=== PATIENT | female | born 1985 | race African-American/Black ===

== ENCOUNTER 2016-09-30 12:51 | Outpatient (CLI) | payer OTHER ==
[~2016-09-30] VITALS: Ht 170.2 cm; Wt 143.0 kg
[~2016-09-30 12:51] MED LIST: ACET500T98 PO; BISM262O23 PO; ZOF8 PO
[2016-09-30 13:03] VITALS: Ht 170.2 cm; Wt 143.0 kg
[2016-09-30 13:39] LABS: ADD SCAN DIFF NO
[2016-09-30 13:41] LABS: BASOPHILS % 0.3 % (0.0-2.0); EOSINOPHILS # 0.1 10^3/ul (0.0-0.5); EOSINOPHILS % 1.3 % (0.0-7.0); HEMATOCRIT 35.7 % (37.0-47.0); HEMOGLOBIN 12.5 g/dl (12.0-16.0); LYMPHOCYTES # 1.8 10^3/ul (0.8-2.9); LYMPHOCYTES % 22.9 % (15.0-51.0); MEAN CORPUSCULAR HEMOGLOBIN 32.6 pg (29.0-33.0); MEAN CORPUSCULAR VOLUME 93.2 fl (82.0-101.0); MEAN PLATELET VOLUME 13.3 fl (7.4-10.4); MONOCYTE # 0.7 10^3/ul (0.3-0.9); MONOCYTES % 8.3 % (0.0-11.0); NEUTROPHIL # 5.4 10^3/ul (1.6-7.5); NEUTROPHILS % 66.7 % (39.0-77.0); PLATELET COUNT 106 10^3/UL (140-415); RED BLOOD COUNT 3.83 10^6/ul (4.20-5.40); RED CELL DISTRIBUTION WIDTH 14.5 % (11.5-14.5)
[2016-09-30 13:50] LABS: ALBUMIN 3.3 g/dl (3.3-4.9); POTASSIUM 3.6 mmol/L (3.5-5.1)
[2016-09-30 13:52] LABS: CREATININE 0.53 mg/dl (0.44-1.00); INR 1.11; PROTIME 14.3 Sec (12.2-14.2); PT RATIO 1.1
[2016-09-30 13:53] LABS: ALBUMIN/GLOBULIN RATIO 1.06; BILIRUBIN,INDIRECT 0.3 mg/dl (0-1.1); BILIRUBIN,TOTAL 0.3 mg/dl (0.2-1.3); CALCIUM 9.2 mg/dl (8.4-10.2); PARTIAL THROMBOPLASTIN TIME 26.4 Sec (25.0-35.0); TOTAL PROTEIN 6.4 g/dl (6.1-8.1); URIC ACID 4.6 mg/dl (3.1-7.9)
[2016-09-30 13:54] LABS: ADD UMIC YES; URINE BILIRUBIN (Dip) NEGATIVE (NEGATIVE); URINE BLOOD (Dip) NEGATIVE (NEGATIVE); URINE COLOR LT. YELLOW (YELLOW); URINE GLUCOSE (Dip) NEGATIVE (NEGATIVE); URINE KETONES (Dip) NEGATIVE (NEGATIVE); URINE LEUKOCYTE ESTERASE (Dip) 2+ (NEGATIVE); URINE NITRITE (Dip) POSITIVE (NEGATIVE); URINE TOTAL PROTEIN (Dip) NEGATIVE (NEGATIVE); URINE UROBILINOGEN (Dip) 0.2 E.U./dL (0.1-1.0)
--- NOTE | 2016-09-30 14:16 | RADRPT ---
PROCEDURE: OB ultrasound for biophysical profile CLINICAL INDICATION: induced hypertension TECHNIQUE: Multiple sonographic images of the pelvis were obtained. Transabdominal views of the g ravid uterus are available for review. The images were reviewed on a PACS workstation. COMPARISON: None FINDINGS: breathing movement = 2/2 tone = 2/2 motion = 2/2 REGINA = 2/2 REGINA = 15.8 cm Single live intrauterine with cardiac activity of 151 bpm. position is cephal ic. The placenta is anterior. IMPRESSION: 1. Single live intrauterine gestation. 2. Biophysical profile = 8/8. 3. REGINA = 15.8 cm. RPTAT: HH .Laureen Starkey MD, MD Date Time Electronically viewed and signed by .Laureen Starkey MD, on 09/30/2016 14:15 .G/
--- NOTE | 2016-09-30 14:17 | RADRPT ---
PROCEDURE: US OB. CLINICAL INDICATION: induced hypertension TECHNIQUE: Multiple sonographic images of the pelvis were obtained. Transabdominal imaging only w as performed. The images were reviewed on a PACS workstation. COMPARISON: No prior studies are available for comparison. FINDINGS: There is a single live intrauterine gestation. Cardiac activity is present with 168 beats per minut e. position is cephalic. Measurements were made in order to determine age. The results are as follows: BPD = 9.72 cm HC = 33.43 cm AC = 36.25 cm FL = 7.54 cm. Estimated gestational age of approximately 39 weeks 1 day. The estimated date of delivery is 10/06/2016. The EFW = 3822 g, 97th %ile. The placenta is anterior. There is no evidence for an abruption or placenta previa. There are no adnexal masses. IMPRESSION: 1. Single live intrauterine gestation of approximately 39 weeks 1 day, by ultrasound criteria. 2. The estimated date of delivery is 10/06/2016. 3. The estimated weight is 3822 g, 97 for %ile. RPTAT: HH .Laureen Starkey MD, Date Time Electronically viewed and signed by .Laureen Starkey MD, on 09/30/2016 14:17 .G/
[2016-09-30 14:31] LABS: BACTERIA,URINE MODERATE; SQUAMOUS EPITHELIAL CELL,UR MANY; URINE RBCS NONE SEEN /HPF (0)
--- NOTE | 2016-09-30 16:30 | TRIAGE ---
OB Triage Datetime Report Generated by CPN: 09/30/2016 16:29 Datetime: 09/30/2016 15:03 Maternal Assessment Level of Consciousness: Fully Conscious DTR's/Clonus: DTRs 2+ Headache: Denies Blurred Vision: No Nausea/Vomiting: Denies RUQ Epigastric Pain: Denies Facial Edema: None Labor Evaluation Frequency: IRREG Monitor Mode: External Duration (sec)2399: 60 Quality: Moderate Pattern: Normal: <= 5 Contractions in 10 Minutes Resting Tone Heartwell: Relaxed Heart Rate FHR Baseline Rate: 145 Monitor Mode: External US FHR Baseline Changes: No Baseline Change Variability: Moderate 6-25 bpm Accelerations: 15X15 Decelerations: None Category: Category I Pain Assessment Pain Scale: 2 Pain Presence: Intermittent Pain Type: Contraction Pain Location: Abdomen Pain Goal: 2 Membrane Status: Intact Datetime: 09/30/2016 14:49 Labor Evaluation Frequency: IRREG Monitor Mode: External Duration (sec)2399: 60 Quality: Moderate Pattern: Normal: <= 5 Contractions in 10 Minutes Resting Tone Heartwell: Relaxed Heart Rate FHR Baseline Rate: 150 Monitor Mode: External US FHR Baseline Changes: No Baseline Change Variability: Moderate 6-25 bpm Accelerations: 15X15 Decelerations: None Category: Category I Pain Assessment Pain Scale: 3 Pain Presence: Intermittent Pain Type: Contraction Pain Location: Abdomen Pain Goal: 3 Vaginal Exam Dilatation (cms): 1.0 Effacement (%): 0 Station: -3 Exam By: KENY WEBBER Membrane Status: Intact Vaginal Bleeding: None Cervix, Consistency: Soft Cervix, Position: Posterior Presentation 'A': Cephalic Datetime: 09/30/2016 13:23 Maternal Assessment Level of Consciousness: Fully Conscious DTR's/Clonus: DTRs 2+ Headache: Denies Blurred Vision: No Nausea/Vomiting: Denies RUQ Epigastric Pain: Present Facial Edema: 1+ Labor Evaluation Frequency: 3-5 Monitor Mode: External Duration (sec)2399: 60 Quality: Mild Pattern: Normal: <= 5 Contractions in 10 Minutes Resting Tone Heartwell: Relaxed Heart Rate FHR Baseline Rate: 140 Monitor Mode: External US FHR Baseline Changes: No Baseline Change Variability: Moderate 6-25 bpm Accelerations: 15X15 Decelerations: None Category: Category I Pain Assessment Pain Scale: 2 Pain Presence: Intermittent Pain Type: Contraction Pain Location: Abdomen Pain Goal: 3 Membrane Status: Intact Datetime: 09/30/2016 12:59 Time of Arrival: 09/30/2016 12:53 EGA: 37.1 Arrived By: Wheelchair Arrived From: Home Movement: Present Contractions: Occasional Rupture of Membranes: Denies Vaginal Bleeding: None Vaginal Discharge: Denies Abdominal Trauma: Not Applicable Patient Complaints: Cramping Datetime: 09/30/2016 12:58 Time of Arrival: 09/30/2016 12:53 Arrived By: Wheelchair Arrived From: Home Chief Complaint: F/U ELEVATED BP AND LOW PLATLET COUNT Movement: Present Contractions: Irregular Rupture of Membranes: Denies Vaginal Bleeding: None Vaginal Discharge: Denies Recent Sexual Intercouse: Denies Abdominal Trauma: Not Applicable Patient Complaints: Other Time Provider Notified: 09/30/2016 13:15 Provider Notified: DR BURNETT Initial Plan: EFM,CALL DR BURNETT
--- NOTE | 2016-10-31 21:54 | QN ---
Documentation Comment pre term r/o labor dc home with instruction SONJA BURNETT MD October 31, 2016 21:54
--- NOTE | 2016-11-07 20:16 | QN ---
Documentation Comment suspected pre eclampsia SONJA BURNETT MD November 07, 2016 20:16
== END 2016-09-30 16:20 | disposition home or self-care (01) ==
LOC: OBT 12:51 → L-D 12:51 → OBT 16:20
PROVIDERS: ATTEND Obstetrics & Gynecology
DX: O60.03 Preterm labor without delivery, third trimester (principal); Z3A.37 37 weeks gestation of pregnancy
CPT/HCPCS: 36415; 76815; 76818; 80053; 81001; 84560; 85025; 85384; 85610; 85730; Z7500; 81003; G0463

== ENCOUNTER 2016-10-19 12:02 | Inpatient (IN) | payer OTHER ==
[~2016-10-19] VITALS: Ht 170.2 cm; Wt 144.4 kg
[2016-10-19 12:35] VITALS: Ht 170.2 cm; Wt 144.4 kg
[2016-10-19 12:36] VITALS: BP 144/89; PULSE 106
[2016-10-19] MEDS ORDERED: PRENAT PO (12:38)
[2016-10-19 13:18] LABS: ADD SCAN DIFF NO
[2016-10-19 13:24] LABS: ABNORMAL IP MESSAGE 1; BASOPHILS % 0.1 % (0.0-2.0); EOSINOPHILS # 0.1 10^3/ul (0.0-0.5); EOSINOPHILS % 1.3 % (0.0-7.0); HEMATOCRIT 37.3 % (37.0-47.0); HEMOGLOBIN 12.5 g/dl (12.0-16.0); LYMPHOCYTES # 1.9 10^3/ul (0.8-2.9); MEAN CORPUSCULAR HEMOGLOBIN 31.6 pg (29.0-33.0); MEAN CORPUSCULAR HGB CONC 33.5 g/dl (32.0-37.0); MEAN CORPUSCULAR VOLUME 94.2 fl (82.0-101.0); MEAN PLATELET VOLUME 12.7 fl (7.4-10.4); MONOCYTE # 0.7 10^3/ul (0.3-0.9); MONOCYTES % 8.6 % (0.0-11.0); NEUTROPHIL # 5.8 10^3/ul (1.6-7.5); NEUTROPHILS % 67.4 % (39.0-77.0); PLATELET COUNT 89 10^3/UL (140-415); RED BLOOD COUNT 3.96 10^6/ul (4.20-5.40); RED CELL DISTRIBUTION WIDTH 15.2 % (11.5-14.5); WHITE BLOOD COUNT 8.6 10^3/ul (4.8-10.8)
[2016-10-19] MEDS ORDERED: METHYLERGONOVINE 0.2 MG INJ IM PRN ×2 (13:30→21:30)
[2016-10-19] MEDS ORDERED: MISOPROSTOL 200 MCG TAB PR PRN ×2 (13:30→21:30)
[2016-10-19] MEDS ORDERED: LACTATED RINGER'S 1,000 ML IV PRN (13:30)
[2016-10-19] MEDS ORDERED: OXYTOCIN 30 UNITS/LR 500 ML IV PRN ×2 (13:30→21:30)
[2016-10-19] MEDS ORDERED: DINOPROSTONE 10 MG VAG SUPP VAG ONE (13:30)
[2016-10-19] MEDS ORDERED: LIDOCAINE 1% (MPF) 30 ML INJ INJ PRN (13:30)
[2016-10-19] MEDS ORDERED: CARBOPROST 250 MCG INJ IM PRN ×2 (13:30→21:30)
[2016-10-19 13:33] LABS: ALBUMIN 3.3 g/dl (3.3-4.9); INR 1.07; PARTIAL THROMBOPLASTIN TIME 28.2 Sec (25.0-35.0); PROTIME 13.9 Sec (12.2-14.2); PT RATIO 1.1
[2016-10-19 13:34] LABS: POTASSIUM 3.6 mmol/L (3.5-5.1)
[2016-10-19 13:36] LABS: BILIRUBIN,INDIRECT 0.3 mg/dl (0-1.1); BILIRUBIN,TOTAL 0.3 mg/dl (0.2-1.3); CREATININE 0.55 mg/dl (0.44-1.00)
[2016-10-19 13:37] LABS: ALBUMIN/GLOBULIN RATIO 1.13; CALCIUM 9.4 mg/dl (8.4-10.2); TOTAL PROTEIN 6.2 g/dl (6.1-8.1); URIC ACID 4.6 mg/dl (3.1-7.9)
[2016-10-19 13:40] LABS: ADD UMIC YES; URINE BILIRUBIN (Dip) NEGATIVE (NEGATIVE); URINE BLOOD (Dip) NEGATIVE (NEGATIVE); URINE COLOR LT. YELLOW (YELLOW); URINE GLUCOSE (Dip) NEGATIVE (NEGATIVE); URINE KETONES (Dip) NEGATIVE (NEGATIVE); URINE LEUKOCYTE ESTERASE (Dip) TRACE (NEGATIVE); URINE NITRITE (Dip) POSITIVE (NEGATIVE); URINE TOTAL PROTEIN (Dip) NEGATIVE (NEGATIVE); URINE UROBILINOGEN (Dip) 0.2 E.U./dL (0.1-1.0)
[2016-10-19 13:50] LABS: BACTERIA,URINE MODERATE
[2016-10-19] MEDS ORDERED: BUTORPHANOL 2 MG INJ IV PRN (14:00)
[2016-10-19] MEDS ORDERED: IBUPROFEN 600 MG TAB PO PRN (14:00)
[2016-10-19] MEDS ORDERED: OXYTOCIN 30 UNITS/LR 500 ML IV SCH (14:00)
--- NOTE | 2016-10-19 14:11 | RADRPT ---
PROCEDURE: OB ultrasound for biophysical profile CLINICAL INDICATION: induced hypertension TECHNIQUE: Multiple sonographic images of the pelvis were obtained. Transabdominal view of the gr avid uterus are available for review. The images were reviewed on a PACS workstation. COMPARISON: OB ultrasound 09/30/2016 FINDINGS: breathing movement = 2/2 tone = 2/2 motion = 2/2 REGINA = 2/2 REGINA = 19.7 cm Single live intrauterine with cardiac activity. heart rate equals 168 beats p er minute. Presentation is cephalic. The placenta is anterior. IMPRESSION: 1. Single viable intrauterine gestation. 2. Biophysical profile = 8. 3. REGINA = 19.7 cm. RPTAT: KK .Dominic Corey MD, MD Date Time Electronically viewed and signed by .Dominic Corey MD, MD on 10/19/2016 14:10 .B/
--- NOTE | 2016-10-19 14:13 | RADRPT ---
PROCEDURE: US OB - Limited weight. CLINICAL INDICATION: induced hypertension TECHNIQUE: Multiple sonographic images of the pelvis were obtained. Transabdominal imaging only w as performed. The images were reviewed on a PACS workstation. COMPARISON: OB ultrasound 09/30/2016 FINDINGS: There is a single viable intrauterine gestation. Cardiac activity is present with 166 beats per min paula. There is a cephalic presentation. Measurements were made in order to determine age. The results are as follows: BPD = 9.64 cm HC = 34.42 cm AC = 39.59 cm FL = 7.75 .cm Estimated gestational age of approximately 39 weeks 4 days +/ - 2 weeks 5 days by ultrasound evalua tion The estimated date of delivery is 10/22/2016 by ultrasound evaluation. The EFW = 4522 +/- 678.4 g (>97%). The placenta is anterior.. IMPRESSION: 1. Single viable intrauterine gestation of approximately 39 weeks 4 days gestation with estimated d ate of delivery of 09/25/2016 by ultrasound evaluation. 2. The estimated weight is 4522 g (> 97%) . RPTAT: KK .Dominic Corey MD, MD Date Time Electronically viewed and signed by .Dominic Corey MD, MD on 10/19/2016 14:13 .B/
[2016-10-19] MEDS: LACTATED RINGER'S 1,000 ML IV SCH ×2 (15:11→20:09)
[2016-10-19] MEDS: CLINDAMYCIN 900 MG/D5W (PMX) 50 ML IV SCH ×2 (15:22→21:26)
[2016-10-19] MEDS ORDERED: LABETALOL HCL 20MG INJ IV ONE (20:30)
[2016-10-19] MEDS ORDERED: ONDANSETRON 4 MG INJ IV STA (21:10)
[2016-10-19] MEDS ORDERED: CITRIC ACID/NA CITRATE 30 ML CUP ONE (21:19)
[2016-10-19] MEDS ORDERED: PHENYLephrine (100 MCG/ML) 5ML SYG ONE (21:23)
[2016-10-19] MEDS ORDERED: OXYTOCIN 10 UNIT INJ ONE (21:23)
[2016-10-19] MEDS ORDERED: morphine SULFATE/PF (10 MG/10 ML) INJ ONE (21:23)
[2016-10-19] MEDS ORDERED: CITRIC ACID/SODIUM CITRATE 15 ML CUP PO ONE (21:30)
[2016-10-19] MEDS ORDERED: ONDANSETRON 4 MG INJ ONE (22:16)
[2016-10-19] MEDS ORDERED: METOCLOPRAMIDE 10 MG INJ ONE (22:16)
[2016-10-19] MEDS ORDERED: DEXAMETHASONE 4 MG/ML 1 ML INJ ONE (22:17)
[2016-10-19] MEDS ORDERED: HYDROCODONE/APAP (5/325) TAB PO PRN (23:00)
[2016-10-19] MEDS ORDERED: NALBUPHINE HCL (10 MG/1 ML) INJ IV PRN (23:00)
[2016-10-19] MEDS ORDERED: morphine 4 MG/ML VIAL IV PRN (23:00)
[2016-10-19] MEDS ORDERED: morphine 2 MG INJ IV PRN (23:00)
[2016-10-19] MEDS ORDERED: ACETAMINOPHEN 500 MG TAB PO PRN (23:00)
[2016-10-19] MEDS ORDERED: HYDROmorphONE 1 MG/ML SYG IV PRN ×2 (23:00)
[2016-10-19] MEDS ORDERED: ONDANSETRON 4 MG INJ IV PRN (23:00)
[2016-10-19] MEDS ORDERED: ONDANSETRON 4 MG INJ IV ONE (23:00)
[2016-10-19] MEDS ORDERED: KETOROLAC 30 MG INJ IV PRN (23:00)
[2016-10-19] MEDS ORDERED: NALOXONE (0.4 MG/ML) INJ IV PRN (23:00)
[2016-10-19] MEDS ORDERED: CITRIC ACID/NA CITRATE 30 ML CUP PO ONE (23:00)
--- NOTE | 2016-10-19 23:48 | OPR ---
Operative Report Planned Procedure Free Text/Dictation 30 yo P2 @ 40wks 2 days, was admitted by Dr. Lugo for IOL. Patient was started on cervidil, which was removed per Dr. Lugo, who made a plan with the patient for c/d in the morning secondary to large baby (EFW 10lbs), elevated BP' s 160's/100 in triage, and low platelets, 89K. I was first made aware of this patient within several hours of coming onto laborist shift, as I was finishing a . Nurse informed me that BP was 180/100 and patient had headache. I asked her to push labetolol, and proceeded to plan for immediate c/d as patient has worsening severe pre-eclampsia. Explained the necessity of delivery to patient, who agree with plan of care. Discussed risks of hemorrhage, blood transfusion, possible need for hysterectomy , and the starting of magnesium sulfate for siezure prophylaxis post-c/d. Procedure date Oct 19, 2016 Procedure(s) Primary c/d Performed by: KAREL RODRIGUEZ MD Assisting provider: YENIFER PORTER M.D. Pre-procedure diagnosis worsening severe pre-eclampsia Anesthesia Type: spinal Procedure Description Under satisfactory spinal anesthesia, the patient was prepped and draped and placed in a supine position, tilted to the left. Pfannenstiel incision was made , carried through the subcutaneous tissue. Bleeders brought under control with electrocautery. Fascia incised to the length of the incision. Rectus muscles from the fascia, divided midline. Peritoneum exposed, entered through a transverse incision. Exploration of abdomen revealed gravid uterus. Bladder flap was developed. Transverse incision was made in the lower segment of the uterus. Amniotic sac ruptured. Clear amniotic fluid noted. Nasal oropharyngeal suction was performed. The baby was handed to the team for immediate attention. The placenta was delivered manually intact. Uterine cavity was cleaned with wet sponge and drainage established. Uterus closed in 2 layers using 0 vicryl in continuous fashion. Peritoneal cavity irrigated with warm saline. Sponge, needle and instrument count reported to be correct. Bladder flap closed to obtain better hemostasis. Fibrillar applied; hemostasis noted. Abdominal peritoneum closed with 2 vicryl continuously. Rectus muscle approximated with 2 vicryl. Fascia closed with 0 vicryl, and skin closed with subcutaneous sutures and subcuticular sutures on a Ghanshyam needle. Estimated blood loss 800mL. Post-Procedure Post-procedure diagnosis same Findings: Live Baby girl, Apgars [9] and [9], weight [9lbs 7oz], [vtx] presentation [3 vessel]cord. Complications: None Physician Certification I, the undersigned physician, hereby certify that I have discussed the procedure described in this consent form with this patient (or the patient's legal chemical sales representative), including: * The risk and benefits of the procedure; * Any adverse reactions that may reasonably be expected to occur; * Any alternative efficacious methods of treatment which may be medically viable ; * The potential problems that may occur during recuperation; * Potential for blood transfusion and associated risks/benefits; and * Any research or economic interest I may have regarding this treatment. I further certify that the patient/legally responsible person was encouraged to ask question and that all questions were answered. KAREL RODRIGUEZ MD Oct 19, 2016 23:47
[2016-10-20] VITALS (20 sets, daily range): BP systolic 114–154; BP diastolic 57–85; PULSE 79–112; RESP 17–20
[2016-10-20] MEDS ORDERED: CARBOPROST 250 MCG INJ IM PRN
[2016-10-20] MEDS ORDERED: MISOPROSTOL 200 MCG TAB PR PRN
[2016-10-20] MEDS ORDERED: MAGNESIUM SULFATE 4 GM/100 ML 100 ML IV ONE
[2016-10-20] MEDS ORDERED: OXYTOCIN 30 UNITS/LR 500 ML IV PRN
[2016-10-20] MEDS: MAGNESIUM SULFATE 20 GM/500 ML 500 ML IV SCH ×3 (00:19→18:19)
[2016-10-20] MEDS: OXYTOCIN 30 UNITS/LR 500 ML IV SCH ×2 (03:15→10:18)
[2016-10-20] MEDS: LACTATED RINGER'S 1,000 ML IV SCH ×4 (07:58→16:43)
[2016-10-20 08:13] LABS: ADD SCAN DIFF NO
[2016-10-20 08:39] LABS: ALBUMIN 3.3 g/dl (3.3-4.9); ALBUMIN/GLOBULIN RATIO 1.22; BILIRUBIN,INDIRECT 0.2 mg/dl (0-1.1); BILIRUBIN,TOTAL 0.2 mg/dl (0.2-1.3); CALCIUM 8.9 mg/dl (8.4-10.2); CREATININE 0.6 mg/dl (0.44-1.00); POTASSIUM 4.6 mmol/L (3.5-5.1); URIC ACID 5.3 mg/dl (3.1-7.9)
[2016-10-20 08:42] LABS: ABNORMAL IP MESSAGE 1; BASOPHILS % 0.1 % (0.0-2.0); HEMATOCRIT 37.3 % (37.0-47.0); HEMOGLOBIN 12.6 g/dl (12.0-16.0); LYMPHOCYTES # 1.2 10^3/ul (0.8-2.9); MEAN CORPUSCULAR HEMOGLOBIN 32.1 pg (29.0-33.0); MEAN CORPUSCULAR HGB CONC 33.8 g/dl (32.0-37.0); MEAN CORPUSCULAR VOLUME 95.2 fl (82.0-101.0); MEAN PLATELET VOLUME 13.2 fl (7.4-10.4); MONOCYTE # 0.9 10^3/ul (0.3-0.9); NEUTROPHIL # 12.9 10^3/ul (1.6-7.5); NEUTROPHILS % 85.4 % (39.0-77.0); RED BLOOD COUNT 3.92 10^6/ul (4.20-5.40); RED CELL DISTRIBUTION WIDTH 15.7 % (11.5-14.5); WHITE BLOOD COUNT 15.1 10^3/ul (4.8-10.8)
[2016-10-20 08:59] LABS: PLATELET COUNT 98 10^3/UL (140-415)
[2016-10-20 09:03] LABS: ADD UMIC YES; URINE BILIRUBIN (Dip) NEGATIVE (NEGATIVE); URINE BLOOD (Dip) 1+ (NEGATIVE); URINE COLOR LT. YELLOW (YELLOW); URINE GLUCOSE (Dip) NEGATIVE (NEGATIVE); URINE KETONES (Dip) 40 (NEGATIVE); URINE LEUKOCYTE ESTERASE (Dip) NEGATIVE (NEGATIVE); URINE NITRITE (Dip) NEGATIVE (NEGATIVE); URINE TOTAL PROTEIN (Dip) NEGATIVE (NEGATIVE); URINE UROBILINOGEN (Dip) 0.2 E.U./dL (0.1-1.0)
--- NOTE | 2016-10-20 09:59 | PN ---
Date/Time of Note Date/Time of Note DATE: 10/20/16 TIME: 09:57 OB Subjective Subjective Subjective Post day 1 Afebrile blood pressures are running 130s 125/75 patient has no complaint of headache blurry vision or epigastric pain resting in bed, incision is dry with bowel sounds lochia moderate extremity 2+ edema currently on magnesium sulfate which will be discontinued today ambulation 24 hours post surgery recommend Laboratory Tests Test 10/19/16 13:00 10/20/16 03:30 10/20/16 07:15 White Blood Count 8.610^3/ul 15.110^3/ul Red Blood Count 3.9610^6/ul 3.9210^6/ul Hemoglobin 12.5g/dl 12.6g/dl Hematocrit 37.3% 37.3% Mean Corpuscular Volume 94.2fl 95.2fl Mean Corpuscular Hemoglobin 31.6pg 32.1pg Mean Corpuscular Hemoglobin Concent 33.5g/dl 33.8g/dl Red Cell Distribution Width 15.2% 15.7% Platelet Count 8910^3/UL 9810^3/UL Mean Platelet Volume 12.7fl 13.2fl Neutrophils % 67.4% 85.4% Lymphocytes % 22.0% 8.0% Monocytes % 8.6% 6.0% Eosinophils % 1.3% 0.0% Basophils % 0.1% 0.1% Nucleated Red Blood Cells % 0.0/100WBC 0.0/100WBC Neutrophils # 5.810^3/ul 12.910^3/ul Lymphocytes # 1.910^3/ul 1.210^3/ul Monocytes # 0.710^3/ul 0.910^3/ul Eosinophils # 0.110^3/ul 0.010^3/ul Basophils # 0.010^3/ul 0.010^3/ul Nucleated Red Blood Cells # 0.010^3/ul 0.010^3/ul Prothrombin Time 13.9Sec Prothrombin Time Ratio 1.1 INR International Normalized Ratio 1.07 Activated Partial Thromboplast Time 28.2Sec Fibrinogen 449.0mg/dl Urine Color LT. YELLOW LT. YELLOW Urine Clarity CLEAR CLEAR Urine pH 6.0 6.0 Urine Specific Smoot <=1.005 >=1.030 Urine Ketones NEGATIVE 40 Urine Nitrite POSITIVE NEGATIVE Urine Bilirubin NEGATIVE NEGATIVE Urine Urobilinogen 0.2 E.U./dL 0.2 E.U./dL Urine Leukocyte Esterase TRACE NEGATIVE Urine Microscopic RBC 5-10/HPF 5-10/HPF Urine Microscopic WBC 5-10/HPF 0-2/HPF Urine Epithelial Cells MANY RARE Urine Bacteria MODERATE Urine Hemoglobin NEGATIVE 1+ Urine Glucose NEGATIVE% NEGATIVE% Urine Total Protein NEGATIVE NEGATIVE Sodium Level 136mmol/L 132mmol/L Potassium Level 3.6mmol/L 4.6mmol/L Chloride Level 104mmol/L 102mmol/L Carbon Dioxide Level 21mmol/L 22mmol/L Anion Gap 15 13 Blood Urea Nitrogen 7mg/dl 6mg/dl Creatinine 0.55mg/dl 0.60mg/dl Glucose Level 115mg/dl 114mg/dl Uric Acid 4.6mg/dl 5.3mg/dl Calcium Level 9.4mg/dl 8.9mg/dl Total Bilirubin 0.3mg/dl 0.2mg/dl Direct Bilirubin 0.00mg/dl 0.00mg/dl Indirect Bilirubin 0.3mg/dl 0.2mg/dl Aspartate Amino Transf (AST/SGOT) 26IU/L 46IU/L Alanine Aminotransferase (ALT/SGPT) 23IU/L 33IU/L Alkaline Phosphatase 167IU/L 190IU/L Total Protein 6.2g/dl 6.0g/dl Albumin 3.3g/dl 3.3g/dl Globulin 2.90g/dl 2.70g/dl Albumin/Globulin Ratio 1.13 1.22 Rapid Plasma Reagin NONREACTIVE Magnesium Level 3.8mg/dl Current Medications Medications (Trade) Dose Ordered Sig/Flor Route PRN Reason Start Time Stop Time Status Last Admin Dose Admin Lactated Ringer's (Lr) 1,000 ml @ 125 mls/hr Q8H IV 10/19/16 13:16 10/19/16 20:09 Lidocaine 30 ml 30 ml ONCE PRN INJ EPISIOTOMY/TEARING 10/19/16 13:30 Lactated Ringer's 1,000 ml @ 2,000 mls/hr Q30M PRN IV PRE-EPIDURAL BOLUS 10/19/16 13:30 Oxytocin/Lactated Ringer's 500 ml @ 0 mls/hr ONCE PRN IV For Hemorrhage Management 10/19/16 13:30 10/19/16 21:16 DC Methylergonovine Maleate (Methergine) 0.2 mg ONCE PRN IM VAGINAL BLEEDING 10/19/16 13:30 10/19/16 21:16 DC Carboprost Tromethamine (Hemabate) 250 mcg ONCE PRN IM VAGINAL BLEEDING 10/19/16 13:30 10/19/16 21:16 DC Misoprostol (Cytotec) 1,000 mcg ONCE PRN [place] VAGINAL BLEEDING 10/19/16 13:30 10/19/16 21:16 DC Dinoprostone 10 mg 10 mg ONCE ONCE VAG 10/19/16 13:30 10/19/16 13:45 DC 10/19/16 15:22 Clindamycin HCl/ Dextrose (Cleocin 900 Mg/ D5W (Pmx)) 50 ml @ 100 mls/hr Q8 IV 10/19/16 14:00 10/20/16 04:04 DC 10/19/16 21:26 Butorphanol Tartrate 2 mg 2 mg Q2H PRN IV PAIN 10/19/16 14:00 10/19/16 20:04 Oxytocin/Lactated Ringer's 500 ml @ 125 mls/hr ONCE -MAY REPEAT X1 IV 10/19/16 14:00 10/20/16 03:15 Oxytocin/Lactated Ringer's 500 ml @ 125 mls/hr ONCE IV 10/19/16 14:00 Ibuprofen (Motrin) 600 mg ONCE PRN PO Mild Pain (Pain Score 1-3) 10/19/16 14:00 Labetalol HCl (Labetalol) 20 mg ONCE ONCE IV 10/19/16 20:30 10/19/16 20:31 DC 10/19/16 20:50 Citric Acid/ Sodium Citrate (Bicitra) 30 ml ONCE ONCE PO 10/19/16 21:30 10/19/16 21:31 DC 10/19/16 21:29 Ondansetron HCl 4 mg 4 mg ONCE STAT IV 10/19/16 21:10 10/19/16 21:15 DC 10/19/16 21:28 Oxytocin/Lactated Ringer's 500 ml @ 0 mls/hr ONCE PRN IV For Hemorrhage Management 10/19/16 21:30 Methylergonovine Maleate (Methergine) 0.2 mg ONCE PRN IM VAGINAL BLEEDING 10/19/16 21:30 Carboprost Tromethamine (Hemabate) 250 mcg ONCE PRN IM VAGINAL BLEEDING 10/19/16 21:30 Misoprostol (Cytotec) 1,000 mcg ONCE PRN [place] VAGINAL BLEEDING 10/19/16 21:30 Citric Acid/ Sodium Citrate (Bicitra) 30 ml STK-MED ONCE .ROUTE 10/19/16 21:19 10/19/16 21:20 DC Morphine Sulfate (Duramorph) 10 mg STK-MED ONCE .ROUTE 10/19/16 21:23 10/19/16 21:24 DC Oxytocin (Oxytocin) 10 units STK-MED ONCE .ROUTE 10/19/16 21:23 10/19/16 21:24 DC Phenylephrine HCl (Lane-Synephrine Inj Syg) 500 mcg STK-MED ONCE .ROUTE 10/19/16 21:23 10/19/16 21:24 DC Ondansetron HCl (Zofran Inj) 4 mg STK-MED ONCE .ROUTE 10/19/16 22:16 10/19/16 22:17 DC Metoclopramide HCl (Reglan) 10 mg STK-MED ONCE .ROUTE 10/19/16 22:16 10/19/16 22:17 DC Dexamethasone (Decadron) 4 mg STK-MED ONCE .ROUTE 10/19/16 22:17 10/19/16 22:18 DC Ondansetron HCl (Zofran Inj) 4 mg pre-procedure ONCE IV 10/19/16 23:00 10/19/16 23:01 DC Citric Acid/ Sodium Citrate (Bicitra) 30 ml pre-procedure ONCE PO 10/19/16 23:00 10/19/16 23:01 DC Hydromorphone HCl (Dilaudid) 0.2 mg Q2H PRN IV PAIN LEVEL 1-5 10/19/16 23:00 10/20/16 21:47 Hydromorphone HCl (Dilaudid) 0.4 mg Q2H PRN IV PAIN LEVEL 6-10 10/19/16 23:00 10/20/16 21:47 Morphine Sulfate (morphine) 2 mg Q2H PRN IV PAIN LEVEL 1-5 10/19/16 23:00 10/20/16 21:47 Morphine Sulfate (morphine) 4 mg Q2H PRN IV PAIN LEVEL 6-10 10/19/16 23:00 10/20/16 21:47 Ketorolac Tromethamine (Toradol) 30 mg Q6H PRN IV PAIN LEVEL 6-10 10/19/16 23:00 10/20/16 21:47 Acetaminophen (Tylenol Tab) 500 mg Q4H PRN PO PAIN LEVEL 1-3 10/19/16 23:00 10/20/16 21:47 Acetaminophen/ Hydrocodone Bitart ([place] (5/325)) 1 tab Q4H PRN PO PAIN LEVEL 4-6 10/19/16 23:00 10/20/16 21:47 Diphenhydramine HCl (Benadryl) 25 mg Q4H PRN IV PRURITUS 10/19/16 23:00 10/20/16 21:47 Nalbuphine HCl (Nubain) 10 mg Q4H PRN IV PRURITUS 10/19/16 23:00 10/20/16 21:47 Ondansetron HCl (Zofran Inj) 4 mg Q6H PRN IV NAUSEA AND/OR VOMITING 10/19/16 23:00 10/20/16 21:47 Naloxone HCl (Narcan) 0.2 mg Q2M PRN IV FOR RESP RATE 8 OR LESS 10/19/16 23:00 10/20/16 21:47 Miscellaneous Information DURAMORPH: 0.2 MG SPI... GIVEN NEURAXIAL XX 10/19/16 23:00 Magnesium Sulfate 100 ml @ 200 mls/hr ONCE ONCE IV 10/20/16 00:00 10/20/16 00:29 DC 10/19/16 23:52 Magnesium Sulfate 500 ml @ 50 mls/hr Q10H IV 10/20/16 00:30 10/20/16 00:19 Lactated Ringer's (Lr) 1,000 ml @ 125 mls/hr Q8H IV 10/19/16 23:58 Acetaminophen/ Codeine Phosphate (Tylenol No.3) 1 tab Q4H PRN PO PAIN LEVEL 4-6 10/20/16 21:48 Acetaminophen/ Codeine Phosphate (Tylenol No.3) 2 tab Q4H PRN PO PAIN LEVEL 7-10 10/20/16 21:48 Ibuprofen (Motrin) 600 mg Q6 PO 10/21/16 00:00 Simethicone 160 mg 160 mg Q8H PRN PO DISTENSION/GAS/BLOATING 10/20/16 00:00 Oxytocin/Lactated Ringer's 500 ml @ 0 mls/hr ONCE PRN IV For Hemorrhage Management 10/20/16 00:00 Carboprost Tromethamine (Hemabate) 250 mcg ONCE PRN IM VAGINAL BLEEDING 10/20/16 00:00 Misoprostol (Cytotec) 1,000 mcg ONCE PRN [place] VAGINAL BLEEDING 10/20/16 00:00 SONJA BURNETT MD Oct 20, 2016 09:59
--- NOTE | 2016-10-20 10:06 | OPPN ---
Date/Time of Note Date/Time of Note DATE: 10/20/16 TIME: 10:06 Post-Anesthesia Notes Post-Anesthesia Note Last documented vital signs Vital Signs Date Time Temp Pulse Resp B/P Pulse Ox O2 Delivery O2 Flow Rate FiO2 10/20/16 06:00 98.1 106 19 123/75 Room Air Activity: WNL Respiratory function: WNL Cardiovascular function: WNL Mental status: Baseline Pain reasonably controlled: Yes Hydration appropriate: Yes Nausea/Vomiting absent: Yes ANIBAL WILSON MD Oct 20, 2016 10:06
[2016-10-20] MEDS: DIPHENHYDRAMINE 50 MG INJ IV PRN ×2 (11:44→18:16)
[2016-10-20] MEDS ORDERED: ACETAMINOPHEN/CODEINE #3 TAB PO PRN (21:48)
[2016-10-20] MEDS: IBUPROFEN 600 MG TAB PO SCH (23:45)
[2016-10-21 03:43] VITALS: BP 129/74; PULSE 88; RESP 18
[2016-10-21] MEDS: ACETAMINOPHEN/CODEINE #3 TAB PO PRN ×4 (03:43→21:50)
[2016-10-21] MEDS: IBUPROFEN 600 MG TAB PO SCH ×4 (05:26→23:15)
[2016-10-21 08:56] VITALS: BP 129/87; PULSE 94; RESP 18
--- NOTE | 2016-10-21 11:58 | PN ---
Date/Time of Note Date/Time of Note DATE: 10/21/16 TIME: 11:57 OB Subjective Subjective Subjective Post day 2 Afebrile vital signs stable abdomen soft good bowel sounds incision dry no bowel movement extremity normal ambulation recommended SONJA BURNETT MD Oct 21, 2016 11:58
[2016-10-21] MEDS ORDERED: NA PHOSPHATE/BIPHOS 133 ML ENEMA PR ONE (12:00)
[2016-10-21 19:30] VITALS: BP 140/87; PULSE 91; RESP 18
[2016-10-22 04:00] VITALS: BP 137/82; PULSE 81; RESP 18
[2016-10-22] MEDS: IBUPROFEN 600 MG TAB PO SCH ×3 (05:29→19:25)
[2016-10-22 08:00] VITALS: BP 154/82; PULSE 91; RESP 16
[2016-10-22] MEDS: ACETAMINOPHEN/CODEINE #3 TAB PO PRN ×3 (08:20→23:23)
[2016-10-22] MEDS ORDERED: DIPHTH/TET/ACEL PERTUSS (ADULT) 0.5 ML VIAL IM* ONE (10:30)
[2016-10-22] MEDS ORDERED: MAGNESIUM HYDROXIDE 311 MG TAB PO ONE (10:30)
[2016-10-22] MEDS ORDERED: NA PHOSPHATE/BIPHOS 133 ML ENEMA PR ONE (10:30)
[2016-10-22] MEDS ORDERED: SALINE 0.65% 45 ML NAS SPRAY NASAL PRN (10:30)
--- NOTE | 2016-10-22 10:38 | QN ---
Documentation Comment POD#3 Pt is doing relatively well. No BM yet. Had a fleets yesterday but nothing came out so wants another one. Trying to take less Tylenol#3 to help with that but then has pain. No VO's. Baby is in NICU. T=98.1 BP 137/82 Fundus firm, at umbilicus. Incision clean, dry and intact. Ext NT, 2+ edema. P: Continue care. Baby is not being discharged today so mom will most likely stay. Can be discharged if needed. MOM ordered along with another Fleets. Nasal spray. Tdap ordered. FRANCOIS STEEN MD Oct 22, 2016 10:38
[2016-10-22] MEDS ORDERED: MAGNESIUM HYDROXIDE 30ML CUP PO ONE (11:30)
[2016-10-22 16:00] VITALS: BP 135/86; PULSE 85; RESP 18
--- NOTE | 2016-10-22 16:00 | PN ---
Date/Time of Note Date/Time of Note DATE: 10/22/16 TIME: 15:59 OB Subjective Subjective Subjective Post day 3 afebrile vital signs are listed abdomen soft incision dry and healing well patient had normal bowel movement today plan of a.m. discharge discussed with the patient SONJA BURNETT MD Oct 22, 2016 16:00
[2016-10-22 20:00] VITALS: BP 145/80; PULSE 85; RESP 21
[2016-10-23] MEDS: IBUPROFEN 600 MG TAB PO SCH ×5 (00:38→18:19)
[2016-10-23] MEDS: ACETAMINOPHEN/CODEINE #3 TAB PO PRN ×3 (03:40→15:30)
[2016-10-23 04:15] VITALS: BP 145/90; PULSE 75; RESP 19
[2016-10-23 08:27] VITALS: BP 149/87; PULSE 80; RESP 18
--- NOTE | 2016-10-23 10:47 | DS ---
Date/Time of Note Date/Time of Note DATE: 10/23/16 TIME: 10:43 Discharge Summary Admission/Discharge Info Admit Date/Time Oct 19, 2016 at 13:40 Discharge Date/Time October 23, 2016 at 11 AM Final Diagnosis Term , preeclampsia, suspected macrosomia Patient Condition: Good Procedures Primary due -induced hypertension suspected macrosomia Hx of Present Illness Term suspected macrosomia complicated with PIH Hospital Course Satisfactory patient discharged home with blood pressures running in 140 over 80s and 90s no headache no blurry vision no epigastric pain patient is calm and alert she is being discharged home with a follow-up instruction the clinic in 1 week Home Meds Active Scripts Acetaminophen (Tylenol) 500 Mg Tab, 500 MG PO TID, #30 TAB 0 Refills Prov:BEN GUTIERRES PA-C 06/01/15 Bismuth Subsalicylate* (Pepto-Bismol*) 262 Mg/15 Ml Oral.susp, 30 ML PO Q6H Y for NAUSEA, #240 ML 0 Refills Prov:BEN GUTIERRES PA-C 06/01/15 Ondansetron Hcl* (Zofran* ODT) 8 mg -ODT Tab.disper, 8 MG PO DAILY Y for NAUSEA AND/OR VOMITING, #10 TAB 0 Refills Prov:BEN GUTIERRES PA-C 06/01/15 Reported Medications Multivit/Min/Fol Ac/Iron/Pren* ( S*) 1 Tab Tab, 1 TAB PO DAILY, TAB 10/19/16 Follow-up Plan Recommended to make appointment in 1 week for post follow-up SONJA BURNETT MD October 23, 2016 10:47
[2016-10-23 16:00] VITALS: BP 138/76; PULSE 86; RESP 18
== END 2016-10-23 19:05 | disposition home or self-care (01) | DRG 765 ==
LOC: OBT 12:02 → L-D 12:03 → OBT 13:18 → L-D 13:40 → PP1 10-20 02:26
PROVIDERS: ADMIT Obstetrics & Gynecology; ATTEND Obstetrics & Gynecology
PROC: 10D00Z1 Extraction of Products of Conception, Low, Open Approach (ICD-10-PCS; principal; 2016-10-19 22:00)
PROC: 3E00X4Z Introduction of Serum, Toxoid and Vaccine into Skin and Mucous Membranes, External Approach (ICD-10-PCS; 2016-10-23)
DX: O14.94 Unspecified pre-eclampsia, complicating childbirth (principal); Z68.42 Body mass index [BMI] 45.0-49.9, adult; O14.24 HELLP syndrome, complicating childbirth; O99.214 Obesity complicating childbirth; E66.9 Obesity, unspecified; O48.0 Post-term pregnancy; Z23 Encounter for immunization; Z3A.40 40 weeks gestation of pregnancy; O36.63X0 Maternal care for excessive fetal growth, third trimester, not applicable or unspecified; Z37.0 Single live birth
CPT/HCPCS: 36415; 76815; 76818; 80053; 81001; 81003; 83735; 84560; 85025; 85384; 85610; 85730; 86592; 86850; 86900; 86901; 86920; 90715; 99464; G0463; J1100; J1200; J1885; J2274; J2370; J2405; J2590; J2765; J3475; J7120